=== PATIENT | male | born 1965 | race Two or more races ===

== ENCOUNTER 2024-05-26 05:12 | Emergency (ER) | payer MEDICAID, OTHER ==
[~2024-05-26] VITALS: Ht 170.2 cm; Wt 110.6 kg
[2024-05-26 06:51] LABS: Urine Bacteria None Seen /hpf (None Seen)
[2024-05-26 07:00] VITALS: PULSE 76; RESP 13; O2SAT 95
[2024-05-26 07:02] LABS: Urine Blood Negative /uL (Negative); Urine Clarity Clear (Clear); Urine Color Colorless (Yellow); Urine Protein, UAD Negative (Negative); Urine Specific Gravity 1.012 (1.001-1.035); Urine Urobilinogen Normal (Negative); Urine WBC 1 /hpf (0 - 3)
[2024-05-26 07:04] LABS: Partial Thromboplastin Time 24.2 SEC (24.5-34.5); Prothrombin Time 10.6 sec (9.3-11.8)
[2024-05-26 07:07] LABS: Basophils # (auto) 0.1 10 ^3/uL (0-0.2); Basophils % (auto) 0.5 % (0.0-2.0); Eosinophils # (auto) 0.1 10 ^3/uL (0-0.8); Eosinophils % (auto) 0.7 % (0.0-7.0); Hematocrit 44.9 % (41.0-53.0); Hemoglobin 15.3 g/dL (13.5-17.5); Lymphocytes # (auto) 2.6 10 ^3/uL (0.4-5.4); Lymphocytes % (auto) 20.2 % (10.0-50.0); Mean Corpuscular Hemoglobin 31.3 pg (28.0-32.0); Monocytes # (auto) 1.3 10 ^3/uL (0-1.3); Monocytes % (auto) 9.9 % (0.0-12.0); Neutrophils # (auto) 8.9 10 ^3/uL (1.6-8.6); Neutrophils % (auto) 68.7 % (37.0-80.0); Nucleated Red Blood Cells % 0.1 %; Red Blood Cells 4.88 10^6/uL (4.5-5.90); Red Cell Distribution Width 14.3 % (11.8-14.3); White Blood Cell 12.9 10^3/uL (4.4-10.8)
[2024-05-26] MEDS: SODIUM CHLORIDE 0.9% 1,000 ML IVB ONE (07:15)
[2024-05-26] MEDS: TAMSULOSIN HYDROCHLORIDE 0.4 MG CAP PO ONE (07:19)
[2024-05-26] MEDS: KETOROLAC TROMETH 30 MG/ML 1ML VIAL IV ONE (07:19)
[2024-05-26] MEDS: ONDANSETRON HCL 4 MG/2 ML VIAL IV ONE (07:19)
[2024-05-26] MEDS: MORPHINE SULFATE 4 MG/ML SYR/VIAL IV ONE (07:21)
[2024-05-26 07:26] LABS: Alanine Aminotransferase 44 U/L (7-40); Alkaline Phosphatase 102 U/L (46-116); Anion Gap 9 (5-15); Aspartate Aminotransferase 19 U/L (13-40); BUN/Creatinine Ratio 13.8 (10.0-20.0); Blood Urea Nitrogen 20 mg/dL (9-23); Calcium 9.5 mg/dL (8.7-10.4); Carbon Dioxide 23 mmol/L (20-30); Chloride 107 mmol/L (98-107); Glucose 85 mg/dL (74-106); Potassium 3.5 mmol/L (3.5-5.1); Sodium 139 mmol/L (136-145)
[2024-05-26 07:27] LABS: Albumin 4.3 g/dL (3.2-4.8); Bilirubin, Total 0.8 mg/dL (0.2-1.0); Total Protein 6.9 g/dL (5.7-8.2)
[2024-05-26 07:28] VITALS: PULSE 73; RESP 15; O2SAT 93
[2024-05-26] MEDS ORDERED: TAMS-35 PO (08:50)
[2024-05-26] MEDS ORDERED: HYDR-4902 PO (08:50)
[2024-05-26] MEDS ORDERED: SENN1TAB49 PO (08:50)
[2024-05-26 09:07] VITALS: BP 105/68; PULSE 69; RESP 17; TEMP 98; O2SAT 95
== END 2024-05-26 09:16 | disposition home or self-care (01) ==
LOC: ER 05:12
DX: N20.0 Calculus of kidney (principal); E86.0 Dehydration; Z79.899 Other long term (current) drug therapy
CPT/HCPCS: 36415; 74176; 80053; 81001; 83605; 85025; 85610; 85730; 96361; 96374; 96375; 99285; J1885; J2270; J2405; J7030

== ENCOUNTER 2024-05-28 09:13 | Emergency (ER) | payer MEDICAID ==
[~2024-05-28] VITALS: Ht 170.2 cm; Wt 110.0 kg
[~2024-05-28 09:13] MED LIST: HYDR-4902 PO; SENN1TAB49 PO; TAMS-35 PO
[2024-05-28 10:28] LABS: Urine Bacteria None Seen /hpf (None Seen)
[2024-05-28 11:00] LABS: Urine Blood 1+ /uL (Negative); Urine Clarity Clear (Clear); Urine Color Yellow (Yellow); Urine Mucus FEW (None Seen); Urine Protein, UAD TRACE (Negative); Urine Specific Gravity 1.022 (1.001-1.035); Urine Urobilinogen Normal (Negative); Urine WBC 1 /hpf (0 - 3); Urine pH 5.5 (5.0-9.0)
[2024-05-28 11:04] LABS: Basophils # (auto) 0.1 10 ^3/uL (0-0.2); Basophils % (auto) 0.6 % (0.0-2.0); Eosinophils # (auto) 0.1 10 ^3/uL (0-0.8); Eosinophils % (auto) 0.9 % (0.0-7.0); Hematocrit 42.9 % (41.0-53.0); Hemoglobin 14.6 g/dL (13.5-17.5); Lymphocytes # (auto) 1.4 10 ^3/uL (0.4-5.4); Lymphocytes % (auto) 14.5 % (10.0-50.0); Mean Corpuscular Hemoglobin 31.1 pg (28.0-32.0); Mean Corpuscular Volume 91.4 fL (80.0-100.0); Monocytes # (auto) 1.1 10 ^3/uL (0-1.3); Monocytes % (auto) 10.7 % (0.0-12.0); Neutrophils # (auto) 7.3 10 ^3/uL (1.6-8.6); Neutrophils % (auto) 73.3 % (37.0-80.0); Red Blood Cells 4.69 10^6/uL (4.5-5.90); Red Cell Distribution Width 14.5 % (11.8-14.3)
[2024-05-28 11:19] LABS: Chloride 103 mmol/L (98-107); Sodium 136 mmol/L (136-145)
[2024-05-28 11:20] LABS: Anion Gap 8 (5-15); Carbon Dioxide 25 mmol/L (20-30)
[2024-05-28 11:21] LABS: Calcium 9.9 mg/dL (8.7-10.4)
[2024-05-28 11:25] LABS: BUN/Creatinine Ratio 8.9 (10.0-20.0); Blood Urea Nitrogen 14 mg/dL (9-23); Glucose 86 mg/dL (74-106)
[2024-05-28 13:27] VITALS: BP 137/82; PULSE 80; RESP 17; TEMP 98.4; O2SAT 96
== END 2024-05-28 13:28 | disposition home or self-care (01) ==
LOC: ER 09:13
DX: G44.209 Tension-type headache, unspecified, not intractable (principal); R10.9 Unspecified abdominal pain; I10 Essential (primary) hypertension; Z87.442 Personal history of urinary calculi; Z98.890 Other specified postprocedural states; Z79.899 Other long term (current) drug therapy
CPT/HCPCS: 36415; 70450; 80048; 81001; 82962; 85025; 93005

== ENCOUNTER 2024-10-21 07:40 | Emergency (ER) | payer MEDICAID ==
[~2024-10-21] VITALS: Ht 167.6 cm; Wt 111.8 kg
[2024-10-21] MEDS: ACETAMINOPHEN 325 MG TAB PO ONE (07:59)
[2024-10-21 08:10] VITALS: BP 121/75; PULSE 120; RESP 16; TEMP 100.8; O2SAT 96
--- NOTE | 2024-10-21 08:26 | DVH ---
CHEST RADIOGRAPH Indication: COUGH Technique: Frontal and lateral view of the chest was obtained Comparison: CT abdomen 05/26/2024 IMPRESSION: The heart appears normal in size. The left lung appears clear. There is stable elevation of the righ t hemidiaphragm. No focal airspace opacity or pneumothorax.
--- NOTE | 2024-10-21 08:31 | ED.PDOC ---
SOB-HPI HPI Comments A 59 YEAR OLD MALE PRESENTS TO THE ED WITH COMPLAINT OF FLU-LIKE SYMPTOMS. PATIENT STATES HE HAS BEEN EXPERIENCING A COUGH, CONGESTION, BODY ACHES, SORE THROAT, AND FEVER FOR THE PAST 5 DAYS. PATIENT DENIES SHORTNESS OF BREATH, CHEST PAIN, ABDOMINAL PAIN, NAUSEA, VOMITING, HEADACHE, OR OTHER COMPLAINTS. NO OTHER SYMPTOMS OR MODIFYING FACTORS AT THIS TIME. PATIENT IS ALERT, ORIENTED X 4, AND HAS STEADY GAIT. Chief Complaint: Flu like Time Seen by MD: 07:58 Primary Care Provider: TERESA Brock notes: Nurses Notes, Medications, Allergies Information Source: Patient Mode of Arrival: Ambulatory Severity: Moderate Timing: Days Duration: Since onset, Days Context: Spontaneous Onset PE Risk Factors: None History of: None Prehospital treatment: None Modifying Factors: Nothing Associated Signs and Symptoms: Cough, Nasal Congestion, Sore Throat If cough with SOB: Productive Past Medical History PAST MEDICAL HISTORY: HTN, Kidney Stones Surgical History: Hernia Repair Family History Family History: Reviewed,noncontributory to illness Social History Smoker: Non-Smoker Alcohol: Denies ETOH Use Drugs: Denies Drug Use Lives In: Home Constitutional: reports: fever; denies: chills, diaphoresis, fatigue, malaise, sweats, weakness, others EENTM: reports: nose congestion, throat pain, throat swelling; denies: blurred vision, double vision, ear bleeding, ear discharge, ear drainage, ear pain, ear ringing, eye pain, eye redness, hearing loss, mouth pain, mouth swelling, nasal discharge, nose bleeding, nose pain, photophobia, tearing, voice changes, others Respiratory: reports: cough; denies: hemoptysis, orthopnea, SOB at rest, shortness of breath, SOB with excertion, stridor, wheezing, others Cardiovascular: denies: chest pain, dizzy spells, diaphoresis, Dyspnea on exertion, edema, irregular heart beat, left arm pain, lightheadedness, palpitations, PND, syncope, others Gastrointestinal: denies: abdomen distended, abdominal pain, blood streaked bowels, constipated, diarrhea, dysphagia, difficulty swallowing, hematemesis, melena, nausea, poor appetite, poor fluid intake, rectal bleeding, rectal pain, vomiting, others Genitourinary: denies: burning, dysuria, flank pain, frequency, hematuria, incontinence, penile discharge, penile sore, pain, testicle pain, testicle swelling, urgency, others Neurological: denies: dizziness, fainting, headache, left sided numbness, left sided weakness, numbness, paresthesia, pre-existing deficit, right sided numbness, right sided weakness, seizure, speech problems, tingling, tremors, weakness, others Musculoskeletal: reports: muscle pain; denies: back pain, gout, joint pain, joint swelling, muscle stiffness, neck pain, others Integumetry: denies: bruises, change in color, change in hair/nails, dryness, laceration, lesions, lumps, rash, wounds, others Allergic/Immunocompromised: denies: Difficulty Healing, Frequent Infections, Hives, Itching, others Hematologic/Lymphatic: denies: anemia, blood clots, easy bleeding, easy bruising, swollen glands, others Endocrine: denies: excessive hunger, excessive sweating, excessive thirst, excessive urination, flushing, intolerance to cold, intolerance to heat, unexplained weight gain, unexplained weight loss, others Psychiatric: denies: anxiety, bipolar disorder, depression, hopeless, panic disorder, schizophrenia, sleepless, suicidal, others All Other Systems: Reviewed and Negative Physical Exam General Appearance: No Apparent Distress, Normal HEENT: PERRL/EOMI, Pharyngeal Erythema (TONSILLAR SWELLING, NO EXUDATES. ), TMs Normal Neck: Full Range of Motion, Non-Tender, Normal, Normal Inspection Respiratory: Chest Non-Tender, Expiration, No Accessory Muscle Use, No Respiratory Distress, Rhonchi Cardiovascular: No Edema, No JVD, No Murmur, No Gallop, Normal Peripheral Pulses, Regular Rate/Rhythm Breast Exam: Deferred Gastrointestinal: No Organomegaly, Non Tender, No Pulsatile Mass, Normal Bowel Sounds, Soft Genitalia: Deferred Pelvic: Deferred Rectal: Deferred Extremities: No calf tenderness, Normal capillary refill, Normal inspection, Normal range of motion, Non-tender, No pedal edema Musculoskeletal : Apperance: Normal Neurologic: Alert, 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 Was a procedure done?: No Differential Dx Differential Diagnosis: Bronchitis, Pneumonia, Sinusitis, Allergic Rhinitis, Otitis Media, Pharyngitis, URI X-Ray, Labs, Meds, VS Vital Signs Date Time Temp Pulse Resp B/P (MAP) Pulse Ox O2 Delivery O2 Flow Rate FiO2 10/21/24 08:10 100.8 120 16 121/75 (90) 96 100.8 10/21/24 08:10 120 16 96 Room Air 10/21/24 07:59 100.8 10/21/24 07:54 100.8 120 16 121/75 (90) 96 Current Medications Medications (Trade) Dose Ordered Sig/Wanda Route Start Time Stop Time Status Last Admin Acetaminophen (Tylenol Tablet) 650 mg ONCE ONCE PO 10/21/24 08:00 10/21/24 08:01 DC 10/21/24 07:59 Ceftriaxone Sodium (Rocephin) 1,000 mg ONCE ONCE IM 10/21/24 08:45 10/21/24 08:46 DC 10/21/24 08:50 CHEST RADIOGRAPH Indication: COUGH Technique: Frontal and lateral view of the chest was obtained Comparison: CT abdomen 05/26/2024 IMPRESSION: The heart appears normal in size. The left lung appears clear. There is stable elevation of the right hemidiaphragm. No focal airspace opacity or pneumothorax. ATED BY: NEHA PETERSON MD DICTATED DATE/TIME: 10/21/24825 SIGNED BY: NEHA PETERSON MD SIGNED DATE/TIME: 10/21/24825 CC: X-Ray, Labs, Meds, VS Comment EXTERNAL MEDICAL RECORDS REVIEWED: [NONE] INDEPENDENT HISTORIANS: [NONE] SOCIAL DETERMINANTS OF HEALTH: [NONE] LABS ORDERED: NONE REVIEWED AND INTERPRETED RESULTS: NONE IMAGING ORDERED: XR CHEST TREATMENTS ORDERED: TYLENOL 650MG PO, ROCEPHIN 1G IM PROCEDURES PERFORMED: NONE CRITICAL CARE TIME: NONE I HAVE DISCUSSED THE PATIENT WITH THE ATTENDING PHYSICIAN DR. LUKE AND HE AGREES WITH THE PATIENT'S PLAN OF CARE AND DISPOSITION. BASED ON HISTORY OF PRESENT ILLNESS, AND PHYSICAL EXAM, PATIENT WILL BE DISCHARGED HOME. SHARED DECISION MAKING: PATIENT INSTRUCTED TO FOLLOW UP WITH PRIMARY CARE PROVIDER IN 1-2 DAYS FOR RE-EVALUATION OF SYMPTOMS. PATIENT VERBALIZES UNDERSTANDING TO RETURN TO ED FOR NEW OR WORSENING SYMPTOMS OR IF FOLLOW UP WITH PCP CANNOT BE OBTAINED. PATIENT FEELS COMFORTABLE GOING HOME AT THIS TIME. ALL QUESTIONS ADDRESSED AT TIME OF DISCHARGE. Images Reviewed?: Images reviewed and evaluated by me Time of 1ST Reevaluation: 09:10 Reevaluation 1ST: Improved Patient Education/Counseling: Diagnosis, Treatment, Need For Follow Up Family Education/Counseling: Diagnosis, Treatment, Need For Follow Up Medical Screening: No EMC Exist At This Time Departure 1 Departure Time of Disposition: 09:10 Impression: Primary Impression: Acute tonsillitis Qualified Codes: J03.90 - Acute tonsillitis, unspecified Additional Impression: Acute bronchitis Qualified Codes: J20.9 - Acute bronchitis, unspecified Disposition: 01 HOME / SELF CARE / HOMELESS Condition: Stable Additional Instructions: FOLLOW-UP WITH PCP IN 1 TO 2 DAYS. TAKE MEDICATIONS PRESCRIBED. RETURN TO ED FOR ANY NEW OR WORSENING SYMPTOMS. e-Prescriptions Ibuprofen (Ibuprofen) 800 Mg Tab 1 TAB PO QID, #24 TAB Prov: DANIELE MEEHAN 10/21/24 Promethazine-Dm (Promethazine Dm 6.25-15 mg/5Ml) 1 Jesika Jesika 5 ML PO TID, #160 ML Prov: DANIELE MEEHAN 10/21/24 Azithromycin (Azithromycin) 500 Mg Tab 1 TAB PO DAILY, #5 TAB Prov: DANIELE MEEHAN 10/21/24 Discharged With: Self Critical Care Note Critical Care Time?: No Stability Stability form required: No Heart Score Heart Score: Heart Score Response (Comments) Value History N/A 0 EKG N/A 0 Age N/A 0 Risk Factors N/A 0 Troponin N/A 0 Total 0 I personally scribed for DANIELE MEEHAN ([email or web address]) on 10/21/24 at 08:31. Electronically submitted by Bean Chopra ([employer]). I personally scribed for DANIELE MEEHAN ([email or web address]) on 10/21/24 at 08:38. Electronically submitted by Bean Chopra ([email or web address]). I personally scribed for DANIELE MEEHAN ([email or web address]) on 10/21/24 at 09:06. Electronically submitted by Bean Chopra ([email or web address]). DANIELE MEEHAN Oct 21, 2024 08:31
[2024-10-21] MEDS: cefTRIAXone SOD 1,000 MG VL IM ONE (08:50)
[2024-10-21] MEDS ORDERED: AZIT500T66 PO (09:06)
[2024-10-21] MEDS ORDERED: PROM1SOL4 PO (09:06)
[2024-10-21] MEDS ORDERED: IBUP-1456 PO (09:08)
== END 2024-10-21 09:16 | disposition home or self-care (01) ==
LOC: ER 07:40
DX: J03.90 Acute tonsillitis, unspecified (principal); J20.9 Acute bronchitis, unspecified; I10 Essential (primary) hypertension; Z87.442 Personal history of urinary calculi; Z98.890 Other specified postprocedural states
CPT/HCPCS: 71046; 96372; 99283; J0696